=== PATIENT | male | born 1995 | race Two or more races ===

== ENCOUNTER 2018-12-03 03:12 | Emergency (ER) | payer OTHER ==
[~2018-12-03] VITALS: Ht 175.3 cm; Wt 92.0 kg
[2018-12-03] MEDS ORDERED: ONDANSETRON ODT 4 MG ONE (03:51)
--- NOTE | 2018-12-03 03:55 | NUR ---
PT MEDICATED PER EMAR. 5 RIGHTS ADDRESSED. PT RESTING ON GURNEY STATES "I ALREADY FEEL BETTER". AWAITING LABS TO BE DRAWN AT THIS TIME. WILL CONTINUE TO MONITOR.
[2018-12-03] MEDS ORDERED: ONDANSETRON ODT 4 MG PO ONE (04:00)
[2018-12-03 04:35] LABS: MEAN CORPUSCULAR HEMOGLOBIN 28.6 pg (27.5-34.5); MEAN CORPUSCULAR HGB CONC 33.2 g/dL (33.2-36.2); MEAN CORPUSCULAR VOLUME 86.1 fL (81-97); MEAN PLATELET VOLUME 7.7 fL (7.4-10.4); PLATELET COUNT 327 x10^3/uL (130-400); RED CELL DISTRIBUTION WIDTH 12.7 % (9.4-14.8)
[2018-12-03 04:48] LABS: ALANINE AMINOTRANSFERASE 27 U/L (12-78); ALBUMIN 4.1 g/dL (3.4-5.0); ANION GAP 7 mmol/L (5-15); CALCIUM 9.1 mg/dL (8.5-10.1); CHLORIDE 104 mmol/L (98-107); CREATININE 0.99 mg/dL (0.7-1.3)
[2018-12-03 04:50] LABS: ALKALINE PHOSPHATASE 62 U/L (45-117); BILIRUBIN,TOTAL 0.4 mg/dL (0.2-1.0); TOTAL PROTEIN 7.7 g/dL (6.4-8.2)
--- NOTE | 2018-12-03 04:57 | NUR ---
PT RESTING ON GURNEY. DENIES ANY NEEDS AT THIS TIME. AWAITING LAB RESULTS. WILL CONTINUE TO MONITOR.
[2018-12-03 04:58] VITALS: BP 132/78
[2018-12-03 05:08] LABS: BASOPHILS % (AUTO) 0 % (0-1); EOSINOPHILS # (AUTO) 0.01 x10^3/uL (0-0.4); EOSINOPHILS % (AUTO) 0 % (1-7); LYMPHOCYTES # (AUTO) 1.67 x10^3/uL (1-3.4); LYMPHOCYTES % (AUTO) 8 % (22-44); MD SCAN; MONOCYTES # (AUTO) 0.33 x10^3/uL (0.2-0.8); MONOCYTES % (AUTO) 2 % (2-9); NEUTROPHILS # (AUTO) 19.96 x10^3/uL (1.8-6.8); NEUTROPHILS % (AUTO) 91 % (42-75)
--- NOTE | 2018-12-03 06:01 | NUR ---
Patient/Caregiver given discharge instructions and they have confirmed that they understand the instructions. Patient ambulatory with steady gait.
== END 2018-12-03 06:03 | disposition home or self-care (01) ==
LOC: ED 04:15
DX: A09 Infectious gastroenteritis and colitis, unspecified (principal)
CPT/HCPCS: 36415; 80053; 83690; 85025; 99283; Q0162